=== PATIENT | male | born 1955 | race Caucasian/White ===

== ENCOUNTER 2019-01-15 09:05 | Observation (INO) | payer MEDICARE, MEDICAID ==
[~2019-01-15] VITALS: Ht 167.6 cm; Wt 105.0 kg
[~2019-01-15 09:05] MED LIST: CYCL-394 PO; DOCU-28 PO; NAPR-56; VALS160T2 PO
--- NOTE | 2019-01-15 11:04 | NUR ---
vascular at bedside for u/s
--- NOTE | 2019-01-15 11:38 | NUR ---
u/s finished await provider
[2019-01-15] MEDS ORDERED: ondansetron/PF 4mg/2ml inj IV PRN (12:55)
[2019-01-15] MEDS ORDERED: magnesium 2GM in 50ml NS 50 ML IV PRN (12:55)
[2019-01-15] MEDS ORDERED: HYDROcodone/acetaminophen 5mg/325mg tablet PO PRN (12:55)
[2019-01-15] MEDS ORDERED: potassium Cl 20 mEq SR tablet PO PRN ×2 (12:55)
[2019-01-15] MEDS ORDERED: magnesium 4gm in 100ml NS 100 ML IV PRN (12:55)
[2019-01-15] MEDS ORDERED: magnesium hydroxide 30ml (MOM) UD suspension PO PRN (12:55)
[2019-01-15] MEDS ORDERED: magnesium Cl slow-release 64mg tablet PO PRN (12:55)
[2019-01-15] MEDS ORDERED: morphine 2 MG/ML inj. syringe IV PRN ×2 (12:55)
[2019-01-15] MEDS ORDERED: potassium CL 10mEq/100ml bag 100 ML IV PRN ×2 (12:55)
[2019-01-15] MEDS ORDERED: acetaminophen 325mg tablet PO PRN ×2 (12:55)
[2019-01-15] MEDS ORDERED: enoxaparin 100mg/ml syringe SUBCUT ONE (12:55)
[2019-01-15] MEDS ORDERED: mag hydrox/Alum hydrox/simeth 30ml oral suspension PO PRN (12:55)
[2019-01-15 12:57] LABS: BASOPHILS # (AUTO) 0.1 X10'3 (0-0.2); BASOPHILS % (AUTO) 0.9 % (0-1); EOSINOPHILS # (AUTO) 0.1 X10'3 (0-0.9); HEMATOCRIT 45.9 % (42.0-52.0); HEMOGLOBIN 15.9 g/dl (14.0-17.9); LYMPHOCYTES # (AUTO) 1.9 X10'3 (1.1-4.8); LYMPHOCYTES % (AUTO) 30.5 % (21-51); MEAN CORPUSCULAR HGB CONC 34.6 g/dL (33.0-36.5); MEAN CORPUSCULAR VOLUME 89.4 FL (78-98); MEAN PLATELET VOLUME 7.1 FL (7.4-10.4); MONOCYTES # (AUTO) 0.4 X10'3 (0-0.9); MONOCYTES % (AUTO) 6.4 % (2-12); NEUTROPHILS # (AUTO) 3.7 X10'3 (1.8-7.7); NEUTROPHILS % (AUTO) 60.2 % (42-75); PLATELET COUNT 207 X10'3 (140-440); RED BLOOD COUNT 5.13 X10'6 (4.70-6.10); RED CELL DISTRIBUTION WIDTH 13.1 % (11.5-14.5); WHITE BLOOD COUNT 6.1 X10'3 (4.5-11.0)
[2019-01-15 13:12] LABS: ALANINE AMINOTRANSFERASE 31 U/L (12-78); ALBUMIN/GLOBULIN RATIO 1.2 (1.1-1.5); ALKALINE PHOSPHATASE 80 IU/L (46-116); ANION GAP 8 (8-16); ASPARTATE AMINO TRANSFERASE 20 U/L (10-37); BILIRUBIN,TOTAL 0.4 MG/DL (0.1-1.0); BLOOD UREA NITROGEN 23 MG/DL (7-18); BUN/CREATININE RATIO 31.5 (5.4-32.0); CHLORIDE 106 MMOL/L (99-107); CREATININE 0.73 MG/DL (0.60-1.10); GLUCOSE 140 MG/DL (70-104); POTASSIUM 4.2 MMOL/L (3.5-5.1); SODIUM 140 MMOL/L (135-145); TOTAL CARBON DIOXIDE 25.6 MMOL/L (24-32); TOTAL PROTEIN 7.4 G/DL (6.4-8.2); eGFR > 90 ML/MIN
[2019-01-15] MEDS ORDERED: enoxaparin 50mg/0.5ml (from 3ml vial) syringe SUBCUT ONE (13:30)
[2019-01-15] MEDS ORDERED: enoxaparin 60mg/0.6ml syringe SUBCUT ONE (13:30)
[2019-01-15] MEDS ORDERED: ASPI-611 PO (13:44)
[2019-01-15] MEDS ORDERED: MULT-955 PO (13:44)
[2019-01-15] MEDS ORDERED: IBUPROFEN PO (14:10)
[2019-01-15] MEDS: enoxaparin 100mg/ml syringe SUBCUT SCH ×2 (14:41→19:32)
[2019-01-15] MEDS: enoxaparin 50mg/0.5ml (from 3ml vial) syringe SUBCUT SCH ×2 (14:41→19:33)
[2019-01-15 15:00] VITALS: BP 159/61
--- NOTE | 2019-01-15 17:14 | NUR ---
Patient in room PCU 3023. I have received report from Sushila and had the opportunity to ask questions and assume patient care.
--- NOTE | 2019-01-15 18:01 | NUR ---
I have reviewed and agree with all interventions, assessments performed and documented by Michelle OLIVERA.
--- NOTE | 2019-01-15 18:22 | NUR ---
Problems reprioritized. Patient report given, questions answered & plan of care reviewed with Davina.
--- NOTE | 2019-01-15 18:38 | NUR ---
Patient in room PCU 3023. I have received report from Susan OLIVERA and had the opportunity to ask questions and assume patient care.
[2019-01-15 19:00] VITALS: BP 150/76
[2019-01-15 23:00] VITALS: BP 121/70
[2019-01-16 03:00] VITALS: BP 126/75
[2019-01-16 05:31] LABS: BASOPHILS % (AUTO) 0.5 % (0-1); EOSINOPHILS # (AUTO) 0.2 X10'3 (0-0.9); EOSINOPHILS % (AUTO) 3.1 % (0-6); HEMATOCRIT 42.6 % (42.0-52.0); HEMOGLOBIN 14.9 g/dl (14.0-17.9); LYMPHOCYTES % (AUTO) 35.3 % (21-51); MEAN CORPUSCULAR HEMOGLOBIN 31.1 PG (27.0-31.0); MEAN CORPUSCULAR HGB CONC 35.1 g/dL (33.0-36.5); MEAN CORPUSCULAR VOLUME 88.6 FL (78-98); MEAN PLATELET VOLUME 7.5 FL (7.4-10.4); MONOCYTES # (AUTO) 0.4 X10'3 (0-0.9); MONOCYTES % (AUTO) 6.4 % (2-12); NEUTROPHILS # (AUTO) 3.1 X10'3 (1.8-7.7); NEUTROPHILS % (AUTO) 54.7 % (42-75); PLATELET COUNT 185 X10'3 (140-440); RED CELL DISTRIBUTION WIDTH 13.3 % (11.5-14.5); WHITE BLOOD COUNT 5.6 X10'3 (4.5-11.0)
[2019-01-16 05:53] LABS: ALBUMIN 3.4 G/DL (3.4-5.0); ANION GAP 10 (8-16); BLOOD UREA NITROGEN 17 MG/DL (7-18); BUN/CREATININE RATIO 21.3 (5.4-32.0); CALCIUM 8.9 MG/DL (8.5-10.1); CHLORIDE 106 MMOL/L (99-107); GLUCOSE 151 MG/DL (70-104); MAGNESIUM 2.1 MG/DL (1.5-2.4); POTASSIUM 4.1 MMOL/L (3.5-5.1); SODIUM 140 MMOL/L (135-145); TOTAL CARBON DIOXIDE 24.4 MMOL/L (24-32); eGFR > 90 ML/MIN
[2019-01-16 06:00] VITALS: BP 123/64
--- NOTE | 2019-01-16 06:14 | NUR ---
Problems reprioritized. Patient report given, questions answered & plan of care reviewed with Arthur OLIVERA.
--- NOTE | 2019-01-16 06:16 | NUR ---
Patient in room PCU 3023. I have received report from JOSELIN Vela and had the opportunity to ask questions and assume patient care.
[2019-01-16] MEDS: enoxaparin 100mg/ml syringe SUBCUT SCH (07:41)
[2019-01-16] MEDS: enoxaparin 50mg/0.5ml (from 3ml vial) syringe SUBCUT SCH (07:41)
[2019-01-16] MEDS ORDERED: losartan 50mg tablet PO SCH (08:00)
[2019-01-16] MEDS ORDERED: K and/or MAG REPLACEMENT MC SCH (08:00)
[2019-01-16] MEDS ORDERED: multivitamins, therapeutics tablet PO SCH (08:00)
[2019-01-16] MEDS ORDERED: aspirin 81mg tablet.DR PO SCH (08:30)
--- NOTE | 2019-01-16 10:32 | NUR ---
PAGER ID: [phone] MESSAGE: [id number] Dylan Douglasse: Patient was wondering if he could be discharged today. JOSELIN Soto Ext [phone]
[2019-01-16 11:00] VITALS: BP 141/78
--- NOTE | 2019-01-16 11:35 | NUR ---
PAGER ID: [phone] MESSAGE: [id number] Dylan Douglasse: Patient was also wondering if he could get something prescribed for his knee pain for discharge. JOSELIN Soto Ext [phone]
[2019-01-16] MEDS ORDERED: APIX5TAB3 PO (11:41)
--- NOTE | 2019-01-16 13:21 | NUR ---
Pt discharged. IV and tele off. Educated on DVT, meds and follow-up. Given Lara coupon. Stable for DC per .
--- NOTE | 2019-01-16 13:46 | NUR ---
Meds called into [facility] in [place].
== END 2019-01-16 14:04 | disposition home or self-care (01) ==
LOC: ER 09:06 → PCU 3S 15:08
PROVIDERS: ADMIT Hospitalist; ATTEND Hospitalist
DX: M25.572 Pain in left ankle and joints of left foot (principal); S80.211A Abrasion, right knee, initial encounter; S80.212A Abrasion, left knee, initial encounter; G89.29 Other chronic pain; I10 Essential (primary) hypertension; I82.402 Acute embolism and thrombosis of unspecified deep veins of left lower extremity; K21.9 Gastro-esophageal reflux disease without esophagitis; Z86.711 Personal history of pulmonary embolism; Z79.899 Other long term (current) drug therapy; W11.XXXA Fall on and from ladder, initial encounter; Y92.89 Other specified places as the place of occurrence of the external cause; Y93.89 Activity, other specified
CPT/HCPCS: 36415; 71045; 73590; 80048; 80053; 83735; 85025; 85730; 87081; 93005; 93971; 96372; 97116; 97161; 97530; 99284; G0378; J1650

== ENCOUNTER 2019-12-08 16:21 | Emergency (ER) | payer MEDICARE, MEDICAID ==
[~2019-12-08] VITALS: Ht 167.6 cm; Wt 100.8 kg
[~2019-12-08 16:21] MED LIST changes: +APIX5TAB3 PO; +ASPI-611 PO; -CYCL-394 PO; -DOCU-28 PO; +MULT-955 PO; -NAPR-56
--- NOTE | 2019-12-08 16:32 | NUR ---
3D MODELER AT BEDSIDE.
[2019-12-08] MEDS ORDERED: HYDROcodone/acetaminophen 5mg/325mg tablet PO ONE (17:05)
[2019-12-08] MEDS ORDERED: HYDR-4383 PO (17:13)
[2019-12-08 17:18] VITALS: BP 141/83
== END 2019-12-08 17:20 | disposition home or self-care (01) ==
LOC: ER 16:21
DX: S92.511A Displaced fracture of proximal phalanx of right lesser toe(s), initial encounter for closed fracture (principal); I10 Essential (primary) hypertension; G89.29 Other chronic pain; Z86.718 Personal history of other venous thrombosis and embolism; Z86.711 Personal history of pulmonary embolism; Z98.890 Other specified postprocedural states; Z79.82 Long term (current) use of aspirin; Z79.899 Other long term (current) drug therapy; W51.XXXA Accidental striking against or bumped into by another person, initial encounter; Y93.89 Activity, other specified; Y92.098 Other place in other non-institutional residence as the place of occurrence of the external cause; Y99.9 Unspecified external cause status
CPT/HCPCS: 73630; 99283

== ENCOUNTER 2020-11-06 09:26 | Emergency (ER) | payer MEDICARE, MEDICAID ==
[~2020-11-06] VITALS: Ht 167.6 cm; Wt 94.3 kg
[~2020-11-06 09:26] MED LIST changes: +HYDR-4383 PO
[2020-11-06 09:38] VITALS: BP 147/75
[2020-11-06] MEDS ORDERED: AMOX-422 PO (10:10)
== END 2020-11-06 10:21 | disposition home or self-care (01) ==
LOC: ER 09:28
DX: S81.811D Laceration without foreign body, right lower leg, subsequent encounter (principal); I10 Essential (primary) hypertension; G89.29 Other chronic pain; Z86.711 Personal history of pulmonary embolism; Z86.718 Personal history of other venous thrombosis and embolism; Z79.2 Long term (current) use of antibiotics; Z79.82 Long term (current) use of aspirin; Z79.899 Other long term (current) drug therapy; W54.0XXD Bitten by dog, subsequent encounter
CPT/HCPCS: 99283

== ENCOUNTER 2020-11-09 14:25 | Emergency (ER) | payer MEDICARE, MEDICAID ==
[~2020-11-09] VITALS: Ht 167.6 cm; Wt 92.6 kg
[~2020-11-09 14:25] MED LIST changes: +AMOX-422 PO
[2020-11-09 14:43] VITALS: BP 125/82
[2020-11-09] MEDS ORDERED: DOXY100C43 PO (16:39)
[2020-11-09] MEDS ORDERED: CEPH250T PO (16:39)
[2020-11-09] MEDS ORDERED: CefTRIAXone 1000mg IM Kit (w/lidocaine diluent) IM ONE (16:40)
== END 2020-11-09 17:06 | disposition home or self-care (01) ==
LOC: ER 14:26
DX: T81.33XA Disruption of traumatic injury wound repair, initial encounter (principal); L03.115 Cellulitis of right lower limb; I10 Essential (primary) hypertension; G89.29 Other chronic pain; Z86.718 Personal history of other venous thrombosis and embolism; Z87.01 Personal history of pneumonia (recurrent); Z98.890 Other specified postprocedural states; Z79.2 Long term (current) use of antibiotics; Z79.82 Long term (current) use of aspirin; Z79.899 Other long term (current) drug therapy; Z86.711 Personal history of pulmonary embolism; Z86.79 Personal history of other diseases of the circulatory system
CPT/HCPCS: 96372; 99283; J0696

== ENCOUNTER 2021-11-08 18:33 | Emergency (ER) | payer MEDICARE, MEDICAID ==
[~2021-11-08] VITALS: Ht 167.6 cm; Wt 85.0 kg
[~2021-11-08 18:33] MED LIST changes: -AMOX-422 PO
[2021-11-08 18:56] VITALS: BP 148/82
--- NOTE | 2021-11-08 22:14 | NUR ---
dressing applied to lac repair
== END 2021-11-08 22:17 | disposition home or self-care (01) ==
LOC: ER 18:34
DX: S81.011A Laceration without foreign body, right knee, initial encounter (principal); X58.XXXA Exposure to other specified factors, initial encounter; Y93.89 Activity, other specified; Y92.89 Other specified places as the place of occurrence of the external cause; Y99.8 Other external cause status
CPT/HCPCS: 12002; 99282; A6222; A6449

== ENCOUNTER 2022-09-19 14:04 | Emergency (ER) | payer MEDICARE, MEDICAID ==
[~2022-09-19] VITALS: Ht 167.6 cm; Wt 89.4 kg
[2022-09-19 14:06] VITALS: BP 124/85
[2022-09-19] MEDS ORDERED: SULF1TAB49 PO (15:32)
[2022-09-19] MEDS ORDERED: bacitracin 15gm ointment TP ONE (15:35)
[2022-09-19] MEDS ORDERED: sulfamethoxazole/trimethoprim DS (800/160mg) tablet PO ONE (15:35)
== END 2022-09-19 16:04 | disposition home or self-care (01) ==
LOC: ER 14:04
DX: L03.115 Cellulitis of right lower limb (principal); I10 Essential (primary) hypertension; G89.29 Other chronic pain; Z79.899 Other long term (current) drug therapy
CPT/HCPCS: 99283

== ENCOUNTER 2024-03-18 14:27 | Emergency (ER) | payer MEDICARE, MEDICAID ==
[~2024-03-18] VITALS: Ht 167.6 cm; Wt 88.6 kg
[2024-03-18] MEDS ORDERED: NALT50TA5 PO (15:38)
[2024-03-18] MEDS ORDERED: CEPH-585 PO (15:38)
[2024-03-18] MEDS ORDERED: SULF1TAB49 PO (15:38)
[2024-03-18 15:54] VITALS: BP 126/68; PULSE 80; RESP 16; TEMP 98.5; O2SAT 99
== END 2024-03-18 15:56 | disposition home or self-care (01) ==
LOC: ER 14:27
DX: Q82.8 Other specified congenital malformations of skin (principal); I10 Essential (primary) hypertension; G89.29 Other chronic pain; Z79.82 Long term (current) use of aspirin; Z79.899 Other long term (current) drug therapy; Z86.711 Personal history of pulmonary embolism; Z86.718 Personal history of other venous thrombosis and embolism; Z98.890 Other specified postprocedural states
CPT/HCPCS: 99283